=== PATIENT | male | born 1975 | race American Indian/Alaskan Native ===

== ENCOUNTER 2017-10-07 16:04 | Emergency (ER) | payer OTHER ==
[2017-10-07 16:05] VITALS: BMI 25.7
[2017-10-07 16:07] VITALS: TEMP 97.8
[2017-10-07 16:16] VITALS: BP 143/86; PULSE 69; RESP 21; O2SAT 97
--- NOTE | 2017-10-07 17:58 | C.PDOC ---
History Of Present Illness 42 year old male with Hx of recent mandibular fx with wired shut jaw presents to the ED c/o of pain to the area. Patient had surgery done at [facility] [place], states being unable to fill prescriptions for pain killers and antibiotics due to some insurance troubles. Patient denies any other physical troubles at the time. Time Seen by Provider: 10/07/17 17:10 Chief Complaint (Nursing): Dental Pain History Per: Patient History/Exam Limitations: physical impairment (wired shut jaw) Onset/Duration Of Symptoms: Days Current Symptoms Are (Timing): Still Present Severity: Mild Quality: Positive for: "Pain" Recent travel outside of the [place]: No Additional History Per: Patient Past Medical History Reviewed: Historical Data, Nursing Documentation, Vital Signs Vital Signs: Last Vital Signs Temp 97.8 F 10/07/17 16:06 Pulse 69 10/07/17 16:14 Resp 21 10/07/17 16:14 BP 143/86 10/07/17 16:14 Pulse Ox 97 10/09/17 12:47 - Medical History PMH: Back Problems, Seizures Denies: Diabetes, Hepatitis, HIV, HTN, Sexually Transmitted Disease Surgical History: No Surg Hx - [facility] ALCOHOL DETOXIFICATION (07/21/14) VACCINATION NEC (07/21/14) Family History: States: Unknown Family Hx - Social History Hx Tobacco Use: Yes Hx Alcohol Use: Yes Hx Substance Use: Yes - Immunization History Hx Tetanus Toxoid Vaccination: No Hx Influenza Vaccination: No Hx Pneumococcal Vaccination: No Review Of Systems Constitutional: Negative for: Fever, Chills ENT: Positive for: Mouth Pain (wired shut jaw) Cardiovascular: Negative for: Chest Pain Respiratory: Negative for: Cough, Shortness of Breath Gastrointestinal: Negative for: Nausea, Vomiting, Abdominal Pain Musculoskeletal: Negative for: Neck Pain Skin: Negative for: Rash Neurological: Negative for: Weakness, Numbness Physical Exam - Physical Exam Appears: Non-toxic, Other (wired shut jaw. appears uncomfortable) Skin: Normal Color, Warm, Dry Head: Atraumatic, Normacephalic Eye(s): bilateral: Normal Inspection, PERRL, EOMI Ear(s): Bilateral: Normal Nose: No Discharge, No Deformity Teeth: Other (mouth wired closed) Neck: Normal ROM, Supple Neurological/Psych: Oriented x3, Normal Speech (wired shut jaw), Normal Cognition ED Course And Treatment O2 Sat by Pulse Oximetry: 97 (On RA) Pulse Ox Interpretation: Normal Medical Decision Making Medical Decision Making: pt with hx recent mandibular fx with wired shut jaw, sts unable to fill rx for pain killers and antibiotics, and is in pain. surgery done at [facility] [place]. pt given im toradol and im morphine no tylenol/codeine elixir available per pharmacy), is more comfortable and will be discharged, advised to return to pharmacy to sort out issues to get prescriptions filled. pt drank juice and ate applesauce in ED. Disposition Counseled Patient/Family Regarding: Diagnosis, Need For Followup - Disposition Disposition: HOME/ ROUTINE Disposition Time: 17:57 Condition: IMPROVED Additional Instructions: Please return to your pharmacy as soon as possible, and try to get your prescriptions filled. Follow up alice cook dental provider at [facility] [place] as soon as possible. Instructions: Jaw Fracture in Adults (ED) Forms: [facility] (Gabonese), General Discharge Instructions - Clinical Impression Clinical Impression: Mandible fracture, Mandibular pain - PA / SEED BUYER / Resident Statement MD/DO has reviewed & agrees with the documentation as recorded. - Scribe Statement The provider has reviewed the documentation as recorded by the Scribe Asad Lezama All medical record entries made by the Scribe were at my direction and personally dictated by me. I have reviewed the chart and agree that the record accurately reflects my personal performance of the history, physical exam, medical decision making, and the department course for this patient. I have also personally directed, reviewed, and agree with the discharge instructions and disposition.
== END 2017-10-07 18:02 | disposition home or self-care (01) ==
LOC: C.ER 16:04
DX: S02.609G Fracture of mandible, unspecified, subsequent encounter for fracture with delayed healing (principal); X58.XXXD Exposure to other specified factors, subsequent encounter; R68.84 Jaw pain
CPT/HCPCS: 96372; 99283; J1885; J2270